=== PATIENT | male | born 1955 | race Caucasian/White ===

== ENCOUNTER 2018-09-12 05:40 | Emergency (ER) | payer MEDICARE, OTHER ==
[2018-09-12] MEDS: ONDANSETRON (ODT) 4 MG TAB ODT (06:47)
[2018-09-12] MEDS: HYDROCODONE/APAP (5/325) TAB PO (06:47)
== END 2018-09-12 08:53 | disposition home or self-care (01) ==
LOC: FTE 05:40
DX: S42.002A Fracture of unspecified part of left clavicle, initial encounter for closed fracture (principal); S22.42XA Multiple fractures of ribs, left side, initial encounter for closed fracture; I10 Essential (primary) hypertension; E11.9 Type 2 diabetes mellitus without complications; V03.10XA Pedestrian on foot injured in collision with car, pick-up truck or van in traffic accident, initial encounter; Z79.4 Long term (current) use of insulin
CPT/HCPCS: 71100; 73030; 73562; 99284-25

== ENCOUNTER 2018-09-16 23:00 | Emergency (ER) | payer MEDICARE, OTHER | END 2018-09-17 02:59 | disposition home or self-care (01) | LOC: FTE 09-17 02:59 | DX: R07.81 Pleurodynia (principal) | CPT/HCPCS: 99282 ==